=== PATIENT | female | born 1985 | race Two or more races ===

== ENCOUNTER 2018-02-15 14:37 | Inpatient (IN) | payer MEDICAID, OTHER ==
[~2018-02-15] VITALS: Ht 157.5 cm; Wt 87.0 kg
[2018-02-15] VITALS (7 sets, daily range): BP systolic 97–109; BP diastolic 59–71
[2018-02-15 15:19] LABS: ALBUMIN 3.3 g/dL (3.4-5.0); ANION GAP 6 mmol/L (5-15); CALCIUM 7.6 mg/dL (8.5-10.1); CHLORIDE 109 mmol/L (98-107)
[2018-02-15] MEDS ORDERED: SODIUM CHLORIDE 0.9% 1,000 ML IV ONE (15:24)
[2018-02-15 15:26] LABS: ALANINE AMINOTRANSFERASE 18 U/L (12-78); ALKALINE PHOSPHATASE 101 U/L (45-117); BILIRUBIN,TOTAL 0.4 mg/dL (0.2-1.0); CREATININE 0.44 mg/dL (0.55-1.02); TOTAL PROTEIN 6.7 g/dL (6.4-8.2)
[2018-02-15] MEDS ORDERED: ONDANSETRON 2MG/ML, 2ML IVPush ONE (15:30)
[2018-02-15] MEDS ORDERED: SODIUM CHLORIDE 0.9% 1,000ML IVBOLUS ONE (15:30)
[2018-02-15] MEDS ORDERED: MORPHINE SULFATE 4 MG/ML, 1ML IVPush PRN (15:30)
[2018-02-15 15:33] LABS: MEAN CORPUSCULAR HEMOGLOBIN 25.5 pg (27.0-34.8); MEAN CORPUSCULAR HGB CONC 32.8 g/dL (32.4-35.8); MEAN CORPUSCULAR VOLUME 77.8 fL (80-100); MEAN PLATELET VOLUME 7.7 fL (7.4-10.4); PLATELET COUNT 286 x10^3/uL (130-400); RED BLOOD COUNT 2.72 x10^6/uL (3.82-5.3); RED CELL DISTRIBUTION WIDTH 16.8 % (9.6-15.2)
[2018-02-15 16:29] LABS: MD MORPH REVIEW ONLY
[2018-02-15 16:30] LABS: ANISOCYTOSIS 1+; BASOPHILS # (AUTO) 0.03 x10^3/uL (0-0.1); BASOPHILS % (AUTO) 0 % (0-1); EOSINOPHILS # (AUTO) 0.12 x10^3/uL (0-0.4); EOSINOPHILS % (AUTO) 1 % (1-7); LYMPHOCYTES # (AUTO) 2.41 x10^3/uL (1-3.4); LYMPHOCYTES % (AUTO) 22 % (22-44); MICROCYTOSIS 1+; MONOCYTES # (AUTO) 0.61 x10^3/uL (0.2-0.8); MONOCYTES % (AUTO) 6 % (2-9); NEUTROPHILS # (AUTO) 7.67 x10^3/uL (1.8-6.8); NEUTROPHILS % (AUTO) 71 % (42-75); POLYCHROMASIA 1+
[2018-02-15 16:31] LABS: <PLATELET ESTIMATE> ADEQUATE; <PLT MORPHOLOGY> NORMAL PLT MORPH
[2018-02-15] MEDS ORDERED: ONDANSETRON ODT 4 MG ONE ×2 (16:46→18:54)
[2018-02-15] MEDS ORDERED: MORPHINE SULFATE 4 MG/ML, 1ML ONE (16:46)
[2018-02-15] MEDS ORDERED: ONDANSETRON ODT 4 MG PO ONE ×2 (17:00→19:00)
[2018-02-15 17:43] LABS: MICROSCOPIC NOT IND
[2018-02-15 17:51] LABS: CULTURE INDICATED? NO
[2018-02-15] MEDS ORDERED: SODIUM CHLORIDE FLUSH 10ML SYR IVF PRN (18:30)
[2018-02-15] MEDS ORDERED: OXYcodone/APAP 5/325MG TABLET PO PRN (23:30)
[2018-02-15] MEDS ORDERED: IBUPROFEN 200 MG TABLET PO ONE (23:30)
[2018-02-15] MEDS ORDERED: IBUPROFEN 600 MG TABLET ONE (23:38)
[2018-02-15] MEDS ORDERED: OXYcodone/APAP 5/325MG TABLET ONE (23:38)
[2018-02-16] VITALS (14 sets, daily range): BP systolic 91–106; BP diastolic 53–70
[2018-02-16] MEDS: SODIUM CHLORIDE 0.9% 1,000 ML IV SCH ×3 (03:50→20:49)
[2018-02-16 05:00] LABS: MEAN CORPUSCULAR HEMOGLOBIN 27.2 pg (27.0-34.8); MEAN CORPUSCULAR HGB CONC 33.3 g/dL (32.4-35.8); MEAN CORPUSCULAR VOLUME 81.6 fL (80-100); MEAN PLATELET VOLUME 7.7 fL (7.4-10.4); PLATELET COUNT 179 x10^3/uL (130-400); RED BLOOD COUNT 2.68 x10^6/uL (3.82-5.3); RED CELL DISTRIBUTION WIDTH 16.8 % (9.6-15.2)
[2018-02-16 05:07] LABS: ALBUMIN 2.4 g/dL (3.4-5.0); ANION GAP 7 mmol/L (5-15); CALCIUM 6.8 mg/dL (8.5-10.1); CHLORIDE 112 mmol/L (98-107)
[2018-02-16 05:12] LABS: ALANINE AMINOTRANSFERASE 16 U/L (12-78); ALKALINE PHOSPHATASE 72 U/L (45-117); BILIRUBIN,TOTAL 0.4 mg/dL (0.2-1.0); CREATININE 0.39 mg/dL (0.55-1.02)
[2018-02-16 05:48] LABS: BASOPHILS # (AUTO) 0.06 x10^3/uL (0-0.1); BASOPHILS % (AUTO) 1 % (0-1); EOSINOPHILS # (AUTO) 0.14 x10^3/uL (0-0.4); EOSINOPHILS % (AUTO) 2 % (1-7); LYMPHOCYTES # (AUTO) 2.08 x10^3/uL (1-3.4); LYMPHOCYTES % (AUTO) 25 % (22-44); MD SCAN; MONOCYTES # (AUTO) 0.67 x10^3/uL (0.2-0.8); MONOCYTES % (AUTO) 8 % (2-9); NEUTROPHILS # (AUTO) 5.39 x10^3/uL (1.8-6.8); NEUTROPHILS % (AUTO) 65 % (42-75)
[2018-02-16] MEDS ORDERED: FLU VACC QS2017-18 (36MOS+) UP/PF 0.5 ML IM-VACC ONE (08:00)
[2018-02-16] MEDS ORDERED: DIPHENHYDRAMINE 50 MG/ML, 1ML IVPush PRN (08:30)
[2018-02-16] MEDS: NORGESTIMATE-ETHINYL ESTRADIOL TABLET PO SCH ×3 (09:00→20:45)
[2018-02-16] MEDS ORDERED: NORETHINDRONE HOMEMEDPO SCH (09:00)
[2018-02-16] MEDS ORDERED: ETHINYL ESTRADIOL HOMEMEDPO SCH (09:00)
[2018-02-16] MEDS: ONDANSETRON ODT 4 MG PO PRN (09:29)
[2018-02-16] MEDS: ACETAMINOPHEN 325 MG TABLET PO PRN ×2 (09:52→22:24)
[2018-02-16 17:04] LABS: BASOPHILS # (AUTO) 0.05 x10^3/uL (0-0.1); BASOPHILS % (AUTO) 1 % (0-1); EOSINOPHILS # (AUTO) 0.21 x10^3/uL (0-0.4); EOSINOPHILS % (AUTO) 2 % (1-7); LYMPHOCYTES # (AUTO) 2.56 x10^3/uL (1-3.4); LYMPHOCYTES % (AUTO) 25 % (22-44); MD NO; MEAN CORPUSCULAR HEMOGLOBIN 27.9 pg (27.0-34.8); MEAN CORPUSCULAR HGB CONC 33.5 g/dL (32.4-35.8); MEAN CORPUSCULAR VOLUME 83.1 fL (80-100); MEAN PLATELET VOLUME 7.7 fL (7.4-10.4); MONOCYTES # (AUTO) 0.65 x10^3/uL (0.2-0.8); MONOCYTES % (AUTO) 6 % (2-9); NEUTROPHILS # (AUTO) 6.74 x10^3/uL (1.8-6.8); NEUTROPHILS % (AUTO) 66 % (42-75); PLATELET COUNT 176 x10^3/uL (130-400); RED BLOOD COUNT 3.33 x10^6/uL (3.82-5.3); RED CELL DISTRIBUTION WIDTH 16.4 % (9.6-15.2)
[2018-02-17 00:30] VITALS: BP 98/66
[2018-02-17] MEDS: ONDANSETRON ODT 4 MG PO PRN (04:31)
[2018-02-17 06:35] VITALS: BP 103/63
[2018-02-17] MEDS ORDERED: ONDANSETRON ODT 4 MG PO PRN (09:30)
[2018-02-17] MEDS ORDERED: IBUPROFEN 200 MG TABLET PO PRN (09:30)
[2018-02-17] MEDS: NORGESTIMATE-ETHINYL ESTRADIOL TABLET PO SCH (09:45)
[2018-02-17] MEDS ORDERED: IBUP200T49 PO (10:01)
[2018-02-17] MEDS ORDERED: ONDA4TAB7 PO (10:01)
[2018-02-17] MEDS ORDERED: FERR325T18 PO (10:02)
[2018-02-17] MEDS ORDERED: NORG1TAB27 PO (10:02)
[2018-02-17 13:22] VITALS: BP 110/72
== END 2018-02-17 13:35 | disposition home or self-care (01) | DRG 761 ==
LOC: ED 18:07 → EDIP 18:08 → ED 18:25 → 4NOR 20:35
PROVIDERS: ADMIT Obstetrics & Gynecology; ATTEND Obstetrics & Gynecology
PROC: 30233N1 Transfusion of Nonautologous Red Blood Cells into Peripheral Vein, Percutaneous Approach (ICD-10-PCS; principal; 2018-02-15)
PROC: 0T9B70Z Drainage of Bladder with Drainage Device, Via Natural or Artificial Opening (ICD-10-PCS; 2018-02-15)
DX: D25.0 Submucous leiomyoma of uterus (principal); D64.9 Anemia, unspecified
CPT/HCPCS: 36415; 36430; 76830; 80053; 81003; 84703; 85025; 86850; 86900; 86923; 96361; 96374; Q0162; J1200; J7030; P9016

== ENCOUNTER → 2018-04-18 | Outpatient (CLI) | payer OTHER ==
[~2018-04-18] MED LIST: FERR325T18 PO; IBUP200T49 PO; MEDR10TA3 PO; NORG1TAB27 PO; ONDA4TAB7 PO
[2018-04-18 15:23] LABS: BASOPHILS # (AUTO) 0.03 x10^3/uL (0-0.1); BASOPHILS % (AUTO) 0 % (0-1); EOSINOPHILS # (AUTO) 0.14 x10^3/uL (0-0.4); EOSINOPHILS % (AUTO) 2 % (1-7); LYMPHOCYTES # (AUTO) 1.53 x10^3/uL (1-3.4); LYMPHOCYTES % (AUTO) 23 % (22-44); MD NO; MEAN CORPUSCULAR HEMOGLOBIN 28.9 pg (27.0-34.8); MEAN CORPUSCULAR VOLUME 87.6 fL (80-100); MEAN PLATELET VOLUME 7.3 fL (7.4-10.4); MONOCYTES # (AUTO) 0.48 x10^3/uL (0.2-0.8); MONOCYTES % (AUTO) 7 % (2-9); NEUTROPHILS # (AUTO) 4.45 x10^3/uL (1.8-6.8); NEUTROPHILS % (AUTO) 67 % (42-75); PLATELET COUNT 291 x10^3/uL (130-400); RED BLOOD COUNT 3.84 x10^6/uL (3.82-5.3); RED CELL DISTRIBUTION WIDTH 15.6 % (9.6-15.2)
== END | disposition home or self-care (01) ==
LOC: STAR 14:32
PROVIDERS: ATTEND Student in an Organized Health Care Education/Training Program
DX: Z01.818 Encounter for other preprocedural examination (principal); N93.9 Abnormal uterine and vaginal bleeding, unspecified; D25.9 Leiomyoma of uterus, unspecified
CPT/HCPCS: 36415; 84703; 85025

== ENCOUNTER 2018-04-25 10:44 | Day surgery (SDC) | payer OTHER ==
[~2018-04-25] VITALS: Ht 157.5 cm; Wt 86.7 kg
[~2018-04-25 10:44] MED LIST changes: +BUPIVACAINE/PF 0.25% ONE; +EPINEPHRINE 1 MG/ML, 1ML ONE
[2018-04-25] MEDS ORDERED: LACTATED RINGERS 1,000 ML IV SCH (11:06)
[2018-04-25 11:10] VITALS: BP 114/77
[2018-04-25] MEDS ORDERED: LIDOCAINE-MPF 1%, 2ML ONE (11:18)
[2018-04-25] MEDS ORDERED: SCOPOLAMINE PATCH, 1.5MG PATCH.TD72 TD ONE (11:30)
[2018-04-25] MEDS ORDERED: ONDANSETRON ODT 8 MG PO ONE (11:30)
[2018-04-25] MEDS ORDERED: ACETAMINOPHEN 500 MG TABLET PO ONE (11:30)
[2018-04-25] MEDS ORDERED: LIDOCAINE-MPF 1%, 2ML INFIL ONE (11:30)
[2018-04-25] MEDS ORDERED: OxyconTIN ER 10 MG TAB.ER PO ONE (11:30)
[2018-04-25 11:59] LABS: HCG UR SG 1.022 (1.003-1.030)
[2018-04-25] MEDS ORDERED: FENTANYL PF 250 MCG/5ML ONE (12:43)
[2018-04-25] MEDS ORDERED: MIDAZOLAM 1 MG/ML, 2ML ONE (12:43)
[2018-04-25] MEDS ORDERED: LIDOCAINE GEL 2%, 5ML ONE (12:47)
[2018-04-25] MEDS ORDERED: SUCCINYLCHOLINE 20 MG/ML, 10ML ONE (12:50)
[2018-04-25] MEDS ORDERED: PROPOFOL 10 MG/ML, 20ML ONE (12:50)
[2018-04-25] MEDS ORDERED: ROCURONIUM 10MG/ML,5ML ONE (12:50)
[2018-04-25] MEDS ORDERED: KETOROLAC 30 MG/1 ML ONE (12:54)
[2018-04-25] MEDS ORDERED: DEXAMETHASONE 4 MG/ML, 1ML ONE (12:54)
[2018-04-25] MEDS ORDERED: NEOSTIGMINE 1 MG/ML, 10ML ONE (12:54)
[2018-04-25] MEDS ORDERED: CEFAZOLIN 1,000 MG ONE (12:54)
[2018-04-25] MEDS ORDERED: GLYCOPYRROLATE 0.2MG/1ML, 5ML ONE (12:54)
[2018-04-25] MEDS ORDERED: FLUORESCEIN SODIUM 500 MG/5 ML ONE (14:24)
[2018-04-25] MEDS ORDERED: SILVER NITRATE STICK TP ONE (14:24)
[2018-04-25] MEDS ORDERED: FENTANYL PF 100 MCG/2ML ONE ×2 (15:24→16:08)
[2018-04-25] MEDS: FENTANYL PF 100 MCG/2ML IV PRN ×3 (16:03→16:30)
[2018-04-25] MEDS ORDERED: OXYcodone 5 MG/5 ML ORAL.SOL UDC ONE (16:21)
[2018-04-25] MEDS ORDERED: PROMETHAZINE 12.5 MG SUPP PR PRN (16:30)
[2018-04-25] MEDS ORDERED: ONDANSETRON ODT 8 MG PO PRN (16:30)
[2018-04-25] MEDS ORDERED: hydrALAzine 20 MG/ML, 1ML IV PRN (16:30)
[2018-04-25] MEDS ORDERED: MEPERIDINE/PF 25MG/0.5ML IVPush PRN (16:30)
[2018-04-25] MEDS ORDERED: ALBUTEROL SULFATE 2.5 MG/3 ML NPPB PRN (16:30)
[2018-04-25] MEDS ORDERED: OXYcodone 5 MG/5 ML ORAL.SOL UDC PO PRN (16:30)
[2018-04-25] MEDS ORDERED: MIDAZOLAM 1 MG/ML, 2ML IV PRN (16:30)
[2018-04-25] MEDS ORDERED: PROMETHAZINE 25 MG/ML, 1ML IV PRN (16:30)
[2018-04-25] MEDS ORDERED: LABETALOL 5MG/ML, 20ML IV PRN (16:30)
[2018-04-25] MEDS ORDERED: MORPHINE SULFATE 4 MG/ML, 1ML ONE (16:36)
[2018-04-25] MEDS: MORPHINE SULFATE 4 MG/ML, 1ML IVPush PRN ×2 (16:38→16:53)
== END 2018-04-25 18:45 | disposition home or self-care (01) ==
LOC: OUT 10:44
PROVIDERS: ATTEND Student in an Organized Health Care Education/Training Program
DX: D25.9 Leiomyoma of uterus, unspecified (principal); N93.9 Abnormal uterine and vaginal bleeding, unspecified; D64.9 Anemia, unspecified; F32.9 Major depressive disorder, single episode, unspecified; Z98.890 Other specified postprocedural states; I10 Essential (primary) hypertension
CPT/HCPCS: 36415; 58552; 81025; 86850; 86900; 88307; J0171; J0330; J0690; J1100; J1885; J2250; J2704; J2710; J3010; J3490; J7120; Q0162